=== PATIENT | female | born 1960 | race Caucasian/White ===

== ENCOUNTER 2019-05-17 18:21 | Inpatient (IN) | payer OTHER ==
[2019-05-17 18:51] LABS: #Lymphocytes 2.2 thou/uL (1.20-3.40); #Monocytes 1.2 thou/uL (0.11-0.59); #Neutrophils 6.8 thou/uL (1.40-6.50); %Basophils 0.3 % (0.0-1.0); %Eosinophils 0.1 % (0.0-10.0); %Lymphocytes 21.4 % (21.0-51.0); %Monocytes 11.9 % (0.0-10.0); %Neutrophils 66.3 % (42.0-75.0); Hemoglobin 13.7 g/dL (12.0-16.0); Mean Corpuscular Hemoglobin 30.8 pg (27.0-31.0); Mean Corpuscular Volume 88.1 fL (78.0-98.0); Mean Platelet Volume 7.1 fL (7.4-10.4); Platelet Count 306 thou/uL (130-400); RBC Distribution Width 13.7 % (11.5-14.5); Red Blood Cell (RBC) Count 4.43 mill/uL (4.20-5.40); White Blood Cell (WBC) Count 10.2 thou/uL (4.8-10.8)
[2019-05-17 19:10] LABS: Bilirubin Negative (Negative); Blood, Urine Negative (Negative); Clarity Clear (Clear); Glucose, Urine (Dipstick) Normal (Negative); Leukocyte Negative Leu/uL (Negative); Nitrite Negative (Negative); Protein, Urine (Dipstick) Negative (Neg-Trace); Urobilinogen Normal mg/dL (Less than 2)
[2019-05-17 19:13] LABS: ALT (SGPT) 35 U/L (8-55); AST (SGOT) 28 U/L (5-34); Albumin 4.3 g/dL (3.5-5.0); Alkaline Phosphatase 233 U/L (40-150); Anion Gap 16 mmol/L (10-20); BUN (Urea Nitrogen) 13 mg/dL (9.8-20.1); Bilirubin, Total 0.9 mg/dL (0.2-1.2); Calc. Creatinine Clearance 0 mL/min (70-130); Calcium 10.3 mg/dL (7.8-10.44); Carbon Dioxide 24 mmol/L (22-29); Chloride 88 mmol/L (98-107); Estimated GFR-MDRD 74; Globulin 3.2 g/dL (2.4-3.5); Glucose 107 mg/dL (70-105); Lipase 10 U/L (8-78); Protein, Total 7.5 g/dL (6.0-8.3); Sodium 125 mmol/L (136-145)
[2019-05-17 19:21] LABS: Potassium 2.7 mmol/L (3.5-5.1)
[2019-05-17] MEDS ORDERED: Potassium Chloride 20 MEQ TAB ONE (20:16)
[2019-05-17] MEDS ORDERED: cloNIDine 0.1 MG TAB ONE (21:56)
[2019-05-17] MEDS ORDERED: Ondansetron ODT 4 MG TAB ONE (23:23)
[2019-05-18] MEDS ORDERED: Acetaminophen 650 MG Suppository PR PRN (00:42)
[2019-05-18] MEDS ORDERED: Ketorolac Tromethamine 30 MG/ML VIAL IVP PRN (00:46)
--- NOTE | 2019-05-18 01:48 | HP ---
PRIMARY CARE DOCTOR: Not reported. CODE STATUS: FULL CODE. TIME OF EVALUATION: 10:00 p.m. CHIEF COMPLAINT: Abdominal pain. HISTORY OF PRESENT ILLNESS: This is a 59-year-old female patient with past medical history of opioid abuse and also chronic alcohol user, came to the hospital after having abdominal pain, reported she has been vomiting for the past few days with no clear triggers, no alleviating factors. Symptoms were [id number]. Past note had been reported that the patient has a history of drug-seeking and opioid addiction. She has been in opioid rehab programs, so we will try to avoid opioid medications for the abdominal pain that she is reporting. She reported not having any CT of the abdomen for the pain, we will do it. We will follow up to rule out any acute problems. REVIEW OF SYSTEMS: All other systems reviewed were negative except for the findings mentioned above. PAST MEDICAL HISTORY: Includes hypertension. PAST SURGICAL HISTORY: Abdominal surgery for bleeding ulcers and spinal cord tumor removal. PSYCHIATRIC HISTORY: Anxiety, PTSD, bipolar, and depression. FAMILY HISTORY:Reviewed and non contributory for current presentation SOCIAL HISTORY: The patient drinks everyday 5 drinks per day. Last use on 05/11/2019. The patient uses drugs on a daily basis. History of tramadol abuse. FAMILY HISTORY: Reviewed, noncontributory for current presentation. KNOWN ALLERGIES: Codeine sulfate. REPORTED MEDICATIONS: 1. Clonidine. 2. Losartan. 3. Metoprolol. 4. Hydrochlorothiazide. 5. Keppra. PHYSICAL EXAMINATION: VITAL SIGNS: On presentation, blood pressure 171/99 with heart rate 102, respiratory rate was 21, and oxygen saturation is 100% on room air. GENERAL APPEARANCE: The patient is alert, oriented, in no acute distress. HEENT: Eyes, normal conjunctivae. Moist oral mucosa. Anicteric. No JVD. RESPIRATORY: Bilateral air entry. No rales. No wheezes. Symmetric expansion. CARDIOVASCULAR: Normal rate. Regular rhythm. No murmurs. No gallop. No edema. ABDOMEN: Soft, reportedly tender. No guarding. No rebound. MUSCULOSKELETAL: Baseline range of motion and strength. SKIN: Warm and intact. No pallor. No rash. No redness. Capillary refill seems to be intact. NEURO: No evidence of any new focal weakness. Cranial nerves seem to be intact. PSYCH: The patient is in good mood. No anxiety. Optimal judgment. DIAGNOSTIC STUDIES: CT abdomen is pending. LABORATORY DATA: The patient has white count of 10.2, hemoglobin 13.7, MCV 88.1 , and platelet count 306. Chemistry: Sodium 125, potassium 2.7, chloride 88, carbon dioxide 24, anion gap 16, BUN 13, creatinine 0.8, GFR 74, and glucose 107. Serum osmolality 269, calcium 10.3, total bilirubin 0.9, AST 28, ALT 35, alkaline phosphatase 233. Serum total protein 7.5, albumin 4.3, globulin 3.2, albumin-globulin ratio is 1.3. Lipase 10. Urine was done was negative. ASSESSMENT AND PLAN: The patient will be placed in the hospital with following medical problems. 1. Abdominal pain, unclear etiology. We will do CTA without contrast to rule out any intraabdominal problem. We will treat pain with known opioid medications. The patient continues to ask for opioids. She has reported in the previous admissions, pain had improved with Dilaudid. I have explained to her, we will not provide opioids. We will give other medications. 2. Hyponatremia, sodium 125, this is moderate. The patient has no symptoms from it. The patient is a hard stick and has had some difficulty in getting an IV access. Once available, we will hydrate, and we will monitor sodium to replace accordingly. 3. Hypokalemia, potassium 2.7. We will replace electrolytes as needed. 4. Deep venous thrombosis prophylaxis. Job ID: [id number] MTDD
[2019-05-18] MEDS ORDERED: Ketorolac Tromethamine 30 MG/ML VIAL ONE (01:56)
[2019-05-18] MEDS ORDERED: Sodium Chloride 0.9% 1,000 ML IV SCH ×3 (03:16→15:30)
[2019-05-18] MEDS: Ondansetron PF 4 MG/2 ML Vial IVP PRN ×2 (04:01→12:14)
[2019-05-18] MEDS: Ketorolac Tromethamine 10 MG TAB PO SCH ×2 (05:44→12:25)
[2019-05-18 06:12] LABS: Band 1 % (5-11); Hemoglobin 11.9 g/dL (12.0-16.0); Lymphocytes 23 % (21-51); MDiff Complete? YES; Mean Corpuscular HGB CONC 33.6 g/dL (32.0-36.0); Mean Corpuscular Volume 89.4 fL (78.0-98.0); Monocytes 16 % (0-10); Neutrophil 58 % (42-75); Platelet Count 273 thou/uL (130-400); Platelet Morphology Comment Appears Adequate; Promyelocytes 1 % (0-0); RBC Distribution Width 14.3 % (11.5-14.5); RBC Morphology Normal; Reactive Lymphocytes 1 % (0-10); Red Blood Cell (RBC) Count 3.98 mill/uL (4.20-5.40); White Blood Cell (WBC) Count 8.6 thou/uL (4.8-10.8)
[2019-05-18 06:21] LABS: Anion Gap 13 mmol/L (10-20); BUN (Urea Nitrogen) 10 mg/dL (9.8-20.1); Calc. Creatinine Clearance 61 mL/min (70-130); Calcium 8.6 mg/dL (7.8-10.44); Carbon Dioxide 25 mmol/L (22-29); Chloride 100 mmol/L (98-107); Estimated GFR-MDRD 70; Glucose 85 mg/dL (70-105); Potassium 5.6 mmol/L (3.5-5.1); Sodium 132 mmol/L (136-145)
[2019-05-18 07:11] LABS: Creatinine, Urine 40.59 mg/dL (47-110); Potassium, Urine 25.6 mmol/L; Sodium, Urine Less than 20 mmol/L (Not Available)
--- NOTE | 2019-05-18 08:12 | CT ---
PRELIMINARY REPORT/[facility]/EMERGENCY AFTER HOURS PROCEDURE: EXAM: CT Abdomen and Pelvis Without Contrast EXAM DATE/TIME: 05/18/2019 2:10 AM CLINICAL HISTORY: 59 years old, female; ER 9. presents to ED via EMS from [facility] C/O nausea and vomiting for "a few day s", abd pain. SX appendectomy TECHNIQUE: Imaging protocol: Computed tomography of the abdomen and pelvis without contrast. COMPARISON: No relevant prior studies available. FINDINGS: Tubes, catheters and devices: Tip of right femoral catheter within the right common iliac vein. Lungs: No acute infiltrate in either lung base. Liver: Normal. No mass. Gallbladder and bile ducts: Status post cholecystectomy. No biliary tract dilatation. Pancreas: Normal. No ductal dilation. Spleen: Normal. No splenomegaly. Adrenals: Normal. No mass. Kidneys and ureters: Normal. No hydronephrosis. Stomach and bowel: No generalized ileus or bowel obstruction. Appendix: Prior appendectomy. Intraperitoneal space: Unremarkable. No free air. No significant fluid collection. Vasculature: Unremarkable. No abdominal aortic aneurysm. Lymph nodes: Unremarkable. No enlarged lymph nodes. Bladder: Unremarkable as visualized. Reproductive: Normal unenhanced uterus and ovaries. Bones/joints: Spinal degenerative changes. Scoliosis. Soft tissues: Unremarkable. IMPRESSION: 1. No generalized ileus or bowel obstruction. 2. No acute intra-abdominal or pelvic process. Thank you for allowing us to participate in the care of your patient. Dictated and Authenticated by: Mikhail Gallo MD 05/18/2019 3:03 AM Central Time ([place] & [place]) FINAL REPORT: CT ABDOMEN AND PELVIS WITHOUT CONTRAST: History: Abdominal pain. Comparison: None. Findings: Lung bases are clear. No pericardial effusion. No nephroureterolithiasis or hydroureteronephrosis. No secondary evidence of a recently passed stone. Femoral venous catheter is in place with tip at the right common femoral vein, proximal component. Advanced degenerative disease of the pubic symphysis. Focal area of rarefaction of the T12 vertebral body may reflect a hemangioma. Impression: Findings and impression are concordant with the preliminary report. Transcribed Date/Time: 05/18/2019 8:21 AM
[2019-05-18] MEDS: levETIRAcetam 500 MG TAB PO SCH ×2 (08:53→20:10)
[2019-05-18] MEDS: cloNIDine 0.3 MG TAB PO SCH ×2 (08:53→13:42)
[2019-05-18] MEDS ORDERED: Losartan 25 MG TAB PO SCH (09:00)
[2019-05-18] MEDS ORDERED: Metoprolol Tartrate 100 MG TAB PO SCH (09:00)
[2019-05-18] MEDS ORDERED: Non-Formulary Item 1 EACH (Losartan Potassium [Losartan Potassium] 100 MG) PO SCH (09:00)
[2019-05-18 09:59] LABS: Anion Gap 13 mmol/L (10-20); BUN (Urea Nitrogen) 12 mg/dL (9.8-20.1); Calc. Creatinine Clearance 61 mL/min (70-130); Calcium 9.6 mg/dL (7.8-10.44); Carbon Dioxide 22 mmol/L (22-29); Chloride 101 mmol/L (98-107); Estimated GFR-MDRD 69; Glucose 76 mg/dL (70-105); Potassium 4.4 mmol/L (3.5-5.1); Sodium 132 mmol/L (136-145)
[2019-05-18] MEDS: Acetaminophen 325 MG TAB PO PRN (12:13)
[2019-05-18] MEDS ORDERED: Sodium Chloride 0.9% (PF) 10 ML VIAL FS PRN (13:31)
--- NOTE | 2019-05-18 13:31 | PDOC.HOSPP ---
- Subjective Encounter Date: 05/18/19 Encounter Time: 12:00 Subjective: pt up in bed complains of pain to her abdomen. she was able to eat her breakfast. - Objective Vital Signs & Weight: Vital Signs (12 hours) Temp Pulse Resp BP Pulse Ox 05/18/19 11:35 97.7 F 84 20 128/76 98 05/18/19 07:26 98.5 F 105 H 17 129/82 99 05/18/19 03:21 98.7 F 90 20 128/69 100 Weight Weight 117 lb 6.4 oz I&O: 05/17/19 05/18/19 05/19/19 06:59 06:59 06:59 Intake Total 680 Output Total 500 Balance 180 Result Diagrams: 05/18/19 05:39 05/18/19 09:23 Hospitalist ROS - Review of Systems Respiratory: denies: cough, dry, shortness of breath, hemoptysis, SOB with excertion, pleuritic pain, sputum, wheezing, other Cardiovascular: denies: chest pain, palpitations, orthopnea, paroxysmal noc. dyspnea, edema, light headedness, other Gastrointestinal: reports: abdominal pain - Medication Medications: Active Medications Generic Name Dose Route Start Last Admin Trade Name Freq PRN Reason Stop Dose Admin Acetaminophen 650 mg 05/18/19 00:42 05/18/19 12:13 Tylenol PO 650 mg Q4H PRN Administration Headache/Fever/Mild Pain (1-3) Clonidine 0.3 mg 05/18/19 09:00 05/18/19 08:53 Catapres PO 0.3 mg TID CHEVY Administration Duloxetine HCl 20 mg 05/18/19 09:00 05/18/19 08:52 Cymbalta PO 20 mg BID CHEVY Administration Ketorolac Tromethamine 10 mg 05/18/19 06:00 05/18/19 12:25 Toradol PO 05/23/19 06:01 10 mg Q6HR CHEVY Administration Levetiracetam 500 mg 05/18/19 09:00 05/18/19 08:53 Keppra PO 500 mg BID CHEVY Administration Losartan Potassium 100 mg 05/18/19 09:00 05/18/19 08:53 Cozaar PO 100 mg DAILY CHEVY Administration Metoprolol Tartrate 100 mg 05/18/19 09:00 05/18/19 08:53 Lopressor PO 100 mg BID CHEVY Administration Ondansetron HCl 4 mg 05/18/19 00:42 05/18/19 12:14 Zofran IVP 4 mg Q6H PRN Administration Nausea/Vomiting Sodium Chloride 10 ml 05/18/19 09:00 05/18/19 08:53 Flush - Normal Saline IVF 10 ml Q12HR CHEVY Administration - Exam Heart: negative: RRR, no murmur, no gallops, no rubs, normal peripheral pulses, irregular, diminshed peripheral pulses, murmur present, II/IV, III/IV Respiratory: negative: CTAB, no wheezes, no rales, no ronchi, normal chest expansion, no tachypnea, normal percussion, rales, rhonchi, tachypneic, wheezes Gastrointestinal: normal bowel sounds Gastrointestinal - other findings: pain on palpation around her flank area Hosp A/P (1) Pain in the abdomen Code(s): R10.9 - UNSPECIFIED ABDOMINAL PAIN Status: Acute (2) Hypokalemia Code(s): E87.6 - HYPOKALEMIA Status: Acute (3) Opiate misuse Code(s): F11.90 - OPIOID USE, UNSPECIFIED, UNCOMPLICATED Status: Acute - Plan pt was in a rehab center and stated that she started to have n/v/abd pain and felt week. According to her she has not been on any narcotics including tramadol and her last drink was a week ago. No evidence of pancreatitis, ct abd/ pel normal. will put her on ppi. Nurse stated she vomited her lunch. i will put her on clear liquid diet, continue fluids.
[2019-05-18] MEDS ORDERED: Pantoprazole 40 MG VIAL IVP SCH (14:00)
[2019-05-18 14:20] LABS: Amphetamine Not Detected (NotDetected); Barbiturates Screen Not Detected (NotDetected); Benzodiazepine Screen Not Detected (NotDetected); Cocaine Metabolite Screen Not Detected (NotDetected); Medtox Control Line Valid? VALID (VALID); Medtox Reader # READER 1; Methadone Not Detected (NotDetected); Methamphetamine Not Detected (NotDetected); Opiate Screen Not Detected (NotDetected); Oxycodone Screen Not Detected (NotDetected); Phencyclidine (PCP) Not Detected (NotDetected); THC/Cannabinoid Screen Not Detected (NotDetected); Tricyclic Screen Not Detected (NotDetected)
[2019-05-18] MEDS: Sodium Chloride 0.9% 1,000 ML IV SCH ×2 (16:34→23:09)
[2019-05-18] MEDS: Benzonatate 100 MG CAP PO PRN ×2 (18:25→23:05)
[2019-05-18] MEDS: Ondansetron ODT 4 MG TAB PO PRN (18:28)
[2019-05-18] MEDS: Ketorolac Tromethamine 10 MG TAB PO PRN (20:09)
[2019-05-18] MEDS: hydrOXYzine 25 MG TAB PO PRN (20:09)
[2019-05-18] MEDS: Dicyclomine 20 MG TAB PO PRN (20:10)
[2019-05-18] MEDS: Melatonin 3 MG TAB PO PRN (20:10)
[2019-05-18] MEDS ORDERED: Dicyclomine 20 MG TAB PO SCH (21:00)
[2019-05-19] MEDS: Ondansetron PF 4 MG/2 ML Vial IVP PRN ×2 (01:17→15:00)
[2019-05-19] MEDS: Ketorolac Tromethamine 10 MG TAB PO PRN (05:59)
[2019-05-19] MEDS: Benzonatate 100 MG CAP PO PRN (05:59)
[2019-05-19] MEDS: levETIRAcetam 500 MG TAB PO SCH ×2 (09:07→20:10)
[2019-05-19] MEDS: Pantoprazole 40 MG VIAL IVP SCH ×2 (09:08→20:10)
[2019-05-19] MEDS: Ondansetron ODT 4 MG TAB PO PRN ×2 (09:19→20:19)
[2019-05-19] MEDS: Losartan 25 MG TAB PO SCH (09:29)
[2019-05-19 09:47] LABS: Anion Gap 11 mmol/L (10-20); BUN (Urea Nitrogen) 16 mg/dL (9.8-20.1); Calc. Creatinine Clearance 57 mL/min (70-130); Calcium 9.1 mg/dL (7.8-10.44); Carbon Dioxide 21 mmol/L (22-29); Chloride 106 mmol/L (98-107); Estimated GFR-MDRD 64; Glucose 78 mg/dL (70-105); Potassium 4.1 mmol/L (3.5-5.1); Sodium 134 mmol/L (136-145)
[2019-05-19] MEDS ORDERED: ISOVUE-370 76%-LOCM 1 ML ONE (10:51)
[2019-05-19] MEDS ORDERED: guaiFENesin ER 600 MG TAB PO SCH (12:00)
[2019-05-19] MEDS: Guaifenesin DM 100-10/5 ML UDCUP PO PRN (12:12)
[2019-05-19] MEDS: Dicyclomine 20 MG TAB PO PRN (12:12)
[2019-05-19] MEDS ORDERED: hydrALAZINE 20 MG/ML VIAL SLOW IVP SCH (12:30)
[2019-05-19] MEDS ORDERED: Losartan 25 MG TAB PO SCH (12:30)
[2019-05-19] MEDS: hydrOXYzine 25 MG TAB PO PRN (12:56)
[2019-05-19] MEDS: Sodium Chloride 0.9% 1,000 ML IV SCH (13:00)
[2019-05-19] MEDS ORDERED: ALPRAZolam 0.5 MG TAB PO SCH (13:45)
[2019-05-19] MEDS: Acetaminophen 325 MG TAB PO PRN (15:56)
[2019-05-19] MEDS ORDERED: Fentanyl 100 MCG/2 ML VIAL SLOW IVP SCH (16:00)
[2019-05-19] MEDS ORDERED: Morphine 4 MG/ML VIAL SLOW IVP SCH (16:00)
[2019-05-19] MEDS ORDERED: cloNIDine 0.1 MG TAB PO SCH (16:00)
--- NOTE | 2019-05-19 18:07 | PDOC.HOSPP ---
- Subjective Encounter Date: 05/19/19 Encounter Time: 11:00 Subjective: pt up in bed complains of pain to her abdomen, she states that she had diarrhea and feels nauseated. - Objective Vital Signs & Weight: Vital Signs (12 hours) Temp Pulse Resp BP BP Pulse Ox 05/19/19 16:06 251/139 H 05/19/19 12:59 86 05/19/19 12:00 98.8 F 86 19 205/115 H 99 05/19/19 07:27 97.1 F L 72 18 159/82 H 99 Weight Admit Weight 117 lb 6.4 oz Weight 117 lb 6.4 oz I&O: 05/18/19 05/19/19 05/20/19 06:59 06:59 06:59 Intake Total 680 3420 Output Total 500 950 Balance 180 2470 Result Diagrams: 05/18/19 05:39 05/19/19 09:06 Hospitalist ROS - Review of Systems Respiratory: denies: cough, dry, shortness of breath, hemoptysis, SOB with excertion, pleuritic pain, sputum, wheezing, other Cardiovascular: denies: chest pain, palpitations, orthopnea, paroxysmal noc. dyspnea, edema, light headedness, other Gastrointestinal: reports: nausea, abdominal pain Genitourinary: denies: dysuria, frequency, incontinence, hematuria, retention, other - Medication Medications: Active Medications Generic Name Dose Route Start Last Admin Trade Name Freq PRN Reason Stop Dose Admin Acetaminophen 650 mg 05/18/19 00:42 05/19/19 15:56 Tylenol PO 650 mg Q4H PRN Administration Headache/Fever/Mild Pain (1-3) Dicyclomine HCl 40 mg 05/18/19 16:12 05/19/19 12:12 Bentyl PO 40 mg BIDPRN PRN Administration ABDOMINAL PAIN Duloxetine HCl 20 mg 05/18/19 09:00 05/19/19 09:07 Cymbalta PO 20 mg BID CHEVY Administration Guaifenesin/Dextromethorphan 15 ml 05/19/19 11:40 05/19/19 12:12 Robitussin Dm PO 15 ml Q4H PRN Administration Cough Hydroxyzine HCl 25 mg 05/18/19 08:15 05/19/19 12:56 Atarax PO 25 mg TID PRN Administration Anxiety Ketorolac Tromethamine 10 mg 05/18/19 16:11 05/19/19 05:59 Toradol PO 05/23/19 16:12 10 mg Q6H PRN Administration Pain Levetiracetam 500 mg 05/18/19 09:00 05/19/19 09:07 Keppra PO 500 mg BID CHEVY Administration Losartan Potassium 50 mg 05/19/19 09:00 05/19/19 09:29 Cozaar PO 50 mg DAILY CHEVY Administration Melatonin 3 mg 05/18/19 19:43 05/18/19 20:10 Melatonin PO 3 mg HS PRN Administration Insomnia Ondansetron HCl 4 mg 05/18/19 00:42 05/19/19 09:19 Zofran Odt PO 4 mg Q6H PRN Administration Nausea/Vomiting Ondansetron HCl 4 mg 05/18/19 00:42 05/19/19 15:00 Zofran IVP 4 mg Q6H PRN Administration Nausea/Vomiting Pantoprazole Sodium 40 mg 05/19/19 09:00 05/19/19 09:08 Protonix IVP 40 mg Q12HR CHEVY Administration Sodium Chloride 10 ml 05/18/19 09:00 05/19/19 09:08 Flush - Normal Saline IVF 10 ml Q12HR CHEVY Administration Sodium Chloride 10 ml 05/18/19 13:31 05/19/19 09:08 Normal Saline Pf FS 10 ml PRN PRN Administration RECONSTITUTION - Exam Neck: negative: supple, symmetric, no JVD, no thyromegaly, no lymphadenopathy, no carotid bruit, JVD Heart: negative: RRR, no murmur, no gallops, no rubs, normal peripheral pulses, irregular, diminshed peripheral pulses, murmur present, II/IV, III/IV Respiratory: negative: CTAB, no wheezes, no rales, no ronchi, normal chest expansion, no tachypnea, normal percussion, rales, rhonchi, tachypneic, wheezes Gastrointestinal: non-distended, normal bowel sounds Gastrointestinal - other findings: pain on palpation around her abdomen Hosp A/P (1) Pain in the abdomen Code(s): R10.9 - UNSPECIFIED ABDOMINAL PAIN Status: Acute (2) Hypokalemia Code(s): E87.6 - HYPOKALEMIA Status: Acute (3) Opiate misuse Code(s): F11.90 - OPIOID USE, UNSPECIFIED, UNCOMPLICATED Status: Acute - Plan pt was in a rehab center and stated that she started to have n/v/abd pain and felt week. According to her she has not been on any narcotics including tramadol and her last drink was a week ago. No evidence of pancreatitis, ct abd/ pel normal. will put her on ppi. Nurse stated she vomited her lunch. i will put her on clear liquid diet, continue fluids. 05/19 pt complains of pain to her mid abdomen. she states that she was nauseated and had diarrhea. per nursing she had emesis. pt kept saying " knock me out" She also appeared anxious. her uds was normal but she has a hx of narcotic use ? withdrawal. Her ct is normal. I did give her one dose of fentanyl and will put her on clear liquid diet. i will restart her bp meds. Her bp yesterday dropped in the 70's after receiving her clonidine. she was given fluids. she has all the signs of withdrawal tachycardia/elevated bp/n/v/ abd pain and some diarrhea.
[2019-05-19] MEDS ORDERED: Metoprolol Tartrate 100 MG TAB PO SCH (18:15)
[2019-05-19] MEDS ORDERED: Nitroglycerin 0.4 MG TAB (25 Tab Bottle) SL SCH (19:00)
[2019-05-19 19:16] LABS: Lactic Acid 1.2 mmol/L (0.5-2.2)
[2019-05-19] MEDS ORDERED: Nitroglycerin 0.4 MG TAB (25 Tab Bottle) SL PRN (19:29)
[2019-05-19] MEDS ORDERED: Acetaminophen 1,000 MG in Premix Bag 1 BAG IVPB PRN (19:30)
[2019-05-19] MEDS ORDERED: Fentanyl 100 MCG/2 ML VIAL SLOW IVP PRN (19:31)
[2019-05-19] MEDS: cloNIDine 0.1 MG TAB PO SCH (20:09)
[2019-05-19] MEDS: guaiFENesin ER 600 MG TAB PO SCH (20:10)
--- NOTE | 2019-05-19 20:12 | CT ---
CT ANGIOGRAM THORAX WITH CONTRAST: (CTA pulmonary angiogram) DATE: 05/19/2019 HISTORY: 59-year-old female with tachycardia and pleuritic pain TECHNIQUE: IV injection of iodinated contrast. Scan acquisition timing attempted to coincide with iodinated contrast bolus reaching maximal density in pulmonary arteries. 3-D MIP reconstructions. FINDINGS: Pulmonary thromboembolism: None. Lungs: Clear. Pneumothorax: None. Pleural effusion: None. Thoracic aorta: No aneurysm or dissection. Mediastinum: No lymphadenopathy or other mass. Elizabeth: No lymphadenopathy or other mass. There is edema and small amount of free fluid around the pancreas, extending to the splenic flexure o f the left:. This is new compared to the noncontrast CT of yesterday 05/18/2019. IMPRESSION: 1. No pulmonary thromboembolism. 2. No intrathoracic pathology identified. 3. Findings suspicious for acute pancreatitis. Recommend correlation with serum amylase and serum lip ase levels.
[2019-05-19] MEDS ORDERED: hydrALAZINE 20 MG/ML VIAL SLOW IVP PRN (20:39)
[2019-05-19] MEDS ORDERED: Metoprolol Tartrate 50 MG TAB PO SCH (21:00)
[2019-05-20] MEDS: Guaifenesin DM 100-10/5 ML UDCUP PO PRN ×2 (02:09→22:23)
[2019-05-20] MEDS: Ketorolac Tromethamine 10 MG TAB PO PRN (02:15)
[2019-05-20] MEDS: Melatonin 3 MG TAB PO PRN (02:47)
[2019-05-20] MEDS: Losartan 25 MG TAB PO SCH (08:48)
[2019-05-20] MEDS: Metoprolol Tartrate 100 MG TAB PO SCH ×2 (08:48→21:12)
[2019-05-20] MEDS: levETIRAcetam 500 MG TAB PO SCH ×2 (08:49→21:12)
[2019-05-20] MEDS: guaiFENesin ER 600 MG TAB PO SCH (08:49)
[2019-05-20] MEDS: Spironolactone 25 MG TAB PO SCH (08:49)
[2019-05-20] MEDS: Pantoprazole 40 MG VIAL IVP SCH ×2 (08:49→21:12)
[2019-05-20] MEDS: cloNIDine 0.1 MG TAB PO SCH ×2 (08:49→21:11)
[2019-05-20] MEDS: Sodium Chloride 0.9% 1,000 ML IV SCH (08:59)
[2019-05-20] MEDS ORDERED: guaiFENesin ER 600 MG TAB PO PRN (09:11)
[2019-05-20] MEDS: Morphine 4 MG/ML VIAL SLOW IVP PRN ×4 (10:07→22:24)
--- NOTE | 2019-05-20 13:44 | PDOC.HOSPP ---
- Subjective Subjective: Seen and examined. Emotionally labiel. Going through severe life stressors with health problems of her significant other, having panic attack and anxiety this AM, history of substance abuse/ etoh abuse. Abdominal pain. - Objective Vital Signs & Weight: Vital Signs (12 hours) Temp Pulse Resp BP Pulse Ox 05/20/19 11:20 99.1 F 79 16 135/78 100 05/20/19 08:21 98.8 F 93 18 186/91 H 100 05/20/19 03:48 97.9 F 88 18 129/75 95 Weight Admit Weight 117 lb 6.4 oz Weight 117 lb 6.4 oz I&O: 05/19/19 05/20/19 05/21/19 06:59 06:59 06:59 Intake Total 3420 2520 Output Total 950 2550 Balance 2470 -30 Result Diagrams: 05/18/19 05:39 05/19/19 09:06 Radiology Reviewed by me: Yes (CTA Chest noted) Hospitalist ROS - Review of Systems All other systems reviewed; all pertinent +/- noted in HPI/Subj - Medication Medications: Active Medications Generic Name Dose Route Start Last Admin Trade Name Freq PRN Reason Stop Dose Admin Clonidine 0.1 mg 05/19/19 21:00 05/20/19 08:49 Catapres PO 0.1 mg BID CHEVY Administration Dicyclomine HCl 40 mg 05/18/19 16:12 05/19/19 12:12 Bentyl PO 40 mg BIDPRN PRN Administration ABDOMINAL PAIN Diltiazem HCl 120 mg 05/20/19 09:00 05/20/19 08:48 Cardizem Cd PO 120 mg DAILY CHEVY Administration Duloxetine HCl 20 mg 05/18/19 09:00 05/20/19 08:48 Cymbalta PO 20 mg BID CHEVY Administration Guaifenesin/Dextromethorphan 15 ml 05/19/19 11:40 05/20/19 02:09 Robitussin Dm PO 15 ml Q4H PRN Administration Cough Hydralazine HCl 10 mg 05/19/19 20:39 05/19/19 20:53 Apresoline SLOW IVP 10 mg Q4H PRN Administration SBP Greater Than 180 Hydroxyzine HCl 25 mg 05/18/19 08:15 05/19/19 12:56 Atarax PO 25 mg TID PRN Administration Anxiety Sodium Chloride 1,000 mls @ 75 mls/hr 05/20/19 08:00 05/20/19 08:59 Normal Saline 0.9% IV 1,000 mls .[id number] CHEVY Administration Ketorolac Tromethamine 10 mg 05/18/19 16:11 05/20/19 02:15 Toradol PO 05/23/19 16:12 10 mg Q6H PRN Administration Pain Levetiracetam 500 mg 05/18/19 09:00 05/20/19 08:49 Keppra PO 500 mg BID CHEVY Administration Losartan Potassium 50 mg 05/19/19 09:00 05/20/19 08:48 Cozaar PO 50 mg DAILY CHEVY Administration Melatonin 3 mg 05/18/19 19:43 05/20/19 02:47 Melatonin PO 3 mg HS PRN Administration Insomnia Metoprolol Tartrate 100 mg 05/20/19 09:00 05/20/19 08:48 Lopressor PO 100 mg BID CHEVY Administration Morphine Sulfate 4 mg 05/20/19 09:07 05/20/19 10:07 Morphine SLOW IVP 4 mg Q4H PRN Administration Moderate to Severe Pain (6-10) Ondansetron HCl 4 mg 05/18/19 00:42 05/19/19 20:19 Zofran Odt PO 4 mg Q6H PRN Administration Nausea/Vomiting Ondansetron HCl 4 mg 05/18/19 00:42 05/19/19 15:00 Zofran IVP 4 mg Q6H PRN Administration Nausea/Vomiting Pantoprazole Sodium 40 mg 05/19/19 09:00 05/20/19 08:49 Protonix IVP 40 mg Q12HR CHEVY Administration Sodium Chloride 10 ml 05/18/19 09:00 05/20/19 08:49 Flush - Normal Saline IVF 10 ml Q12HR CHEVY Administration Sodium Chloride 10 ml 05/18/19 13:31 05/19/19 09:08 Normal Saline Pf FS 10 ml PRN PRN Administration RECONSTITUTION Spironolactone 25 mg 05/20/19 09:00 05/20/19 08:49 Aldactone PO 25 mg DAILY CHEVY Administration - Exam General Appearance: NAD, awake alert General - other findings: Panic attack Eye: anicteric sclera ENT: moist mucosa Neck: supple, symmetric, no lymphadenopathy Heart: no murmur, no gallops, no rubs Heart - other findings: S1 and S2 present Respiratory: no wheezes, no rales, no ronchi Gastrointestinal: soft, non-distended, normal bowel sounds, no palpable masses, no guarding, no rigidity, tender to palpation Extremities: no edema Skin: no lesions, no rashes Neurological: CN's grossly intact, no focal deficits Musculoskeletal: generalized weakness Psychiatric: normal affect, A&O x 3 Psychiatric - other findings: Panic attack and depression uncontrolled Hosp A/P (1) Pancreatitis Code(s): K85.90 - ACUTE PANCREATITIS WITHOUT NECROSIS OR INFECTION, UNSP Status: Acute (2) Nausea and vomiting Code(s): R11.2 - NAUSEA WITH VOMITING, UNSPECIFIED Status: Resolved (3) Alcohol abuse Code(s): F10.10 - ALCOHOL ABUSE, UNCOMPLICATED Status: Chronic (4) Panic attack Code(s): F41.0 - PANIC DISORDER [EPISODIC PAROXYSMAL ANXIETY] Status: Acute (5) Depression Code(s): F32.9 - MAJOR DEPRESSIVE DISORDER, SINGLE EPISODE, UNSPECIFIED Status : Chronic (6) Opiate misuse Code(s): F11.90 - OPIOID USE, UNSPECIFIED, UNCOMPLICATED Status: Chronic (7) Pain in the abdomen Code(s): R10.9 - UNSPECIFIED ABDOMINAL PAIN Status: Acute - Plan Plan: Med/ tel Pancreatits seen on CT chest, though not seen on initial CT abdomen Hx of alcohol abuse Hx of opiate misuse Clinically pancreatitis is mild, tolerating clear liquid diet, no nausea or vomiting Patients main issues seem to be uncontrolled panic attacks and depression with severe life stressors of critical illness of her significant other Pain control with IV and oral medications Clear liquid diet Increase Zoloft Came from rehabilitation facility, patient "doesnt know if she wants to go back " Replace electrolytes as needed Symptomatic therapy for N/v
[2019-05-21] MEDS: Sodium Chloride 0.9% 1,000 ML IV SCH ×2 (02:36→12:31)
[2019-05-21] MEDS: Morphine 4 MG/ML VIAL SLOW IVP PRN (02:36)
[2019-05-21] MEDS: traMADol HCl 50 MG TAB PO PRN ×2 (07:40→12:31)
[2019-05-21] MEDS: cloNIDine 0.1 MG TAB PO SCH (07:40)
[2019-05-21] MEDS: Metoprolol Tartrate 100 MG TAB PO SCH (09:04)
[2019-05-21] MEDS: Pantoprazole 40 MG VIAL IVP SCH (09:04)
[2019-05-21] MEDS: Losartan 25 MG TAB PO SCH (09:04)
[2019-05-21] MEDS: Spironolactone 25 MG TAB PO SCH (09:05)
[2019-05-21] MEDS: levETIRAcetam 500 MG TAB PO SCH (09:05)
[2019-05-21 14:04] VITALS: BMI 21.4
[2019-05-21 15:24] VITALS: BP 135/80; TEMP 98.2
--- NOTE | 2019-05-22 03:22 | DIS ---
DATE OF ADMISSION: 05/18/2019 DATE OF DISCHARGE: 05/21/2019 SIGNIFICANT FINDINGS: The patient was found to have mild pancreatitis on CT scan of the abdomen. PROCEDURES PERFORMED/TREATMENTS RENDERED: The patient had extensive workup including CT scan of the abdomen and pelvis, please see full report for details. CT angiography of the chest, please see full report for details. CT scans from one day apart did have mild changes of pancreatitis and this may be a radiology reader interpretation variants. CONDITION ON DISCHARGE: Stable. SPECIFIC INSTRUCTIONS FOR THE PATIENT/FAMILY: 1. The patient is recommended to take all medications as directed, to be re-evaluated by admitting physician. 2. The patient is recommended to follow up with primary care physician in the next 2 to 4 days. 3. The patient is recommended to follow up with all other specialists as directed. 4. The patient is recommended to follow up with Psychiatry in the next 2 to 4 days. 5. The patient is recommended to follow up with drug and alcohol counselor in the next 1 to 2 days. DISCHARGE MEDICATIONS: Please see full discharge medication list for details with the following changes. 1. Zoloft increased to 50 mg one tablet p.o. b.i.d. 2. Hydroxyzine 25 mg one tablet p.o. t.i.d. p.r.n. anxiety. 3. Other home medications were continued. HOSPITAL COURSE: Ms. Hicks is a 59-year-old white female, who presented to [facility] on 05/18/2019, please see full history and physical for initial details. The patient was complaining of abdominal pain and she had a CT scan of the abdomen, please see full report for details. On CT scan of the abdomen, there was no acute intraabdominal pathology on 05/18/2019. The patient was admitted to medical unit with telemetry for further evaluation. The patient had daily adjustments in blood pressure medications, nausea medications, and vomiting medications. The patient works as a respiratory therapist and she thought she was having some respiratory distress despite adequate oxygenation and a CT angiography of the chest was performed-please see full report for details. CT angiography of the chest on 05/19/2019 demonstrated no acute cardiothoracic pathology and no pulmonary embolisms. The patient was found to have mild changes suggestive of acute pancreatitis, this is despite having a CT scan of the abdomen just one day prior that did not have any signs of pancreatitis. The patient does have a history of heavy alcohol use, 5+ drinks per day. The patient also has a history of opiate abuse. The patient is going to several life stressors including critical illness of a family member, worsening depression and bipolar disorder, PTSD and panic attacks. The patient has also had spinal cord tumor removal and has had chronic pain issues. The patient is going to drug and alcohol rehabilitation program. The patient recommended safe for discharge as she was tolerating diet, breathing well on room air, pain was controlled on oral medications, and she will continue to need adjustments in her psychiatric medications and mood stabilizing medications. The patient recommended to continue all medications as directed, to be re-evaluated by primary care physician on admission. The patient is recommended to have drug and alcohol counseling. The patient is recommended to follow up with psychiatrist in the next 2 to 4 days at rehabilitation facility. The patient is recommended to return to acute care hospital immediately if signs or symptoms return, worsen, or any other new symptoms occur. Greater than 41 minutes spent coordinating care and discharge process for this patient. Job ID: [id number]
== END 2019-05-21 16:44 | DRG 439 ==
LOC: ERS 18:21 → 2NO 05-18 03:05
PROVIDERS: ADMIT Hospitalist; ATTEND Hospitalist
DX: K85.90 Acute pancreatitis without necrosis or infection, unspecified (principal); E87.1 Hypo-osmolality and hyponatremia; I10 Essential (primary) hypertension; F41.9 Anxiety disorder, unspecified; F31.9 Bipolar disorder, unspecified; F43.10 Post-traumatic stress disorder, unspecified; E87.6 Hypokalemia; F11.90 Opioid use, unspecified, uncomplicated; F10.10 Alcohol abuse, uncomplicated; G89.29 Other chronic pain; Z79.899 Other long term (current) drug therapy
CPT/HCPCS: 36415; 36416; 36556; 71275; 74176; 80048; 80053; 80306; 81003; 82436; 82533; 82570; 83605; 83690; 83930; 83935; 84133; 84300; 84443; 85025; 96374; C9113; J0131; J0360; J0780; J1885; J2270; J2405; J3010; Q0162; Q9966